=== PATIENT | female | born 1975 | race Caucasian/White ===

== ENCOUNTER 2024-10-05 20:40 | Emergency (ER) | payer OTHER, SELFPAY ==
[2024-10-05 20:41] VITALS: BP 109/81
--- NOTE | 2024-10-05 21:02 | ED.GENMED ---
History of Present Illness
General
Chief Complaint: Urinary Symptoms
Time Seen by Provider: 10/05/24 21:02
History of Present Illness
History of Present Illness:
TIME OF INITIAL ENCOUNTER: 9 PM
HPI: Patient presents with dysuria and abdominal discomfort. A few weeks ago, she went to see her [employer]ER who placed her on Flagyl for possible bacterial vaginosis. Shortly after she was on Flagyl, she developed unexplained bruising. She went to
[place] because she had ongoing symptoms she says that as an outpatient she had an MRI. She was placed on Macrobid recently and has taken 3 doses. She was concerned because of ongoing pain and she took a urinalysis [id number] today which
was abnormal. She tells me that in the past after she had a straight cath placed after she could not void after delivery, she had pyelonephritis/sepsis and this greatly concerned her now. She states she is 'scheduled to have a urine culture'. She
states she was recently tested for STDs and was negative.
EXAM:
GENERAL: Well appearing in no distress
HEENT: Moist oral mucosa
CARDIOVASCULAR: No murmurs, normal heart rate, regular rhythm, No chest wall tenderness
PULMONARY: No respiratory distress, breath sounds are clear and equal
ABDOMEN: Soft with no peritoneal signs, no tenderness
BACK: No CVA tenderness
NEUROLOGIC: Excellent strength all extremities, no coordination deficits
PSYCHIATRIC: Appropriate mental status, normal insight and judgement
EXTREMITIES: Nontender, no edema, moves all extremities equally
SKIN: No rash, no lesions
NUMBER AND COMPLEXITY OF PROBLEMS ADDRESSED AT THE ENCOUNTER
� Chronic conditions affecting care: Asthma, has had pyelonephritis
� Acute Exacerbation and/or Progression of Chronic Illness: This is an acute problem
� Differential Diagnosis includes: UTI, pyelonephritis, doubt sepsis based on vital signs
AMOUNT AND/OR COMPLEXITY OF DATA TO BE REVIEWED AND ANALYZED
� I performed an independent evaluation of and my interpretation is:
EKG:
CT:
X-rays:
Laboratory Studies: Urinalysis entirely negative, white count normal, chemistries unremarkable
Other:
� Review of other/old records: I reviewed records, the patient was seen here with esophagitis in the past.
� Clinical information was obtained by an independent historian: None needed
� Prescriptions/Medications Considered but not given:
� Further testing considered but not performed: Considered imaging tonight however the patient had a recent CT of the abdomen pelvis which showed an ovarian cyst and an MRI of the pelvis that showed fibroids
RISK OF COMPLICATIONS AND/OR MORBIDITY OR MORTALITY OF PATIENT MANAGEMENT
� Social determinants of health affecting care: Lives at home
� Discussion with other providers: None needed
� Escalation of care including admission/observation vs risk of discharge considered: The patient has a normal urinalysis however remains very concerned of ongoing dysuria type symptoms. I have called the micro lab to add on a
urine culture and they have said that they will do so. White blood cell count is normal. The patient appears very anxious as she was septic from pyelonephritis in the past. However currently there is no clear indication for admission to the
hospital but we did give a one-time dose of Rocephin here in case she does have a more serious urinary tract infection not seen on urinalysis. Although it is listed that she has a penicillin allergy, the patient tells me that her chief strategy officer told her
that she does not have a true penicillin allergy.
ANY OTHER UPDATES:
Past History
Past History
ED Past Medical History: Asthma
Social History
Personal: Single
Living: with family
Phy Exam
Physical Exam
Physical Exam:
See HPI
Course
Orders/Labs/Results
Orders:
Orders
10/05/24 21:40
Complete Blood Count/With Diff Urgent
Comprehensive Metabolic Panel Urgent
Urinalysis Reflex To Culture Urgent
Date Specimen was Collected: 10/05/24
Time Specimen was Collected: 21:20
Urine Culture Urgent
[facility] Source: U
Specimen Description:
Date Specimen was Collected: 10/05/24
Time Specimen was Collected: 21:20
Comment: ADD ON
10/05/24 22:43
CefTRIAXone [Rocephin] 1,000 mg IV NOW STA
10/05/24 22:45
Add On- LAB Urgent
Tests Added?: urine culture
10/05/24 22:46
Phenazopyridine HCl [Pyridium] 200 mg PO NOW STA
Abnormal Lab Results
10/05/24
21:40
RBC 3.73 L 10^6/uL
(4.20-5.40)
Hct 36.0 L %
(37.0-47.0)
MCH 33.0 H pg
(27.0-31.0)
Absolute Monos (auto) 0.8 H 10^3/uL
(0.1-0.6)
Neutrophils % 40.9 L %
(42.2-75.2)
Monocytes % 14.5 H %
(1.7-9.3)
Total Bilirubin 0.1 L mg/dl
(0.2-1.3)
AST 13 L U/L
(14-36)
10/05/24 21:40
10/05/24 21:40
Vital Signs
Initial and Last Documented VS:
Initial Vital Signs
Temp Pulse Resp BP Pulse Ox
97.2 F 85 16 109/81 98
10/05/24 20:41 10/05/24 20:41 10/05/24 20:41 10/05/24 20:41 10/05/24 20:41
Last Documented Vital Signs
Temp Pulse Resp BP Pulse Ox
97.2 F 85 16 109/81 98
10/05/24 20:41 10/05/24 20:41 10/05/24 20:41 10/05/24 20:41 10/05/24 20:41
*Critical Care Note
Total Time (30-74mins, 75-104mins- exclusive of procedures): Not Applicable
ED Attending Note
-
Portions of this chart may have been created with voice recognition software.� Occasional wrong word or��sound alike� substitutions may have occurred due to the inherent limitations of voice recognition software.
Discharge Plan
Departure
Patient Disposition: Home (Routine Discharge)
Date of Disposition: 10/05/24
Time of Disposition: 22:47
Patient with high blood pressure during this ER visit?: Yes
Discharge Problem:
Dysuria
Prescriptions:
New
phenazopyridine [Pyridium] 200 mg tablet
200 mg PO BID PRN (Reason: Pain) Qty: 6 0RF
Referrals:
Librado Sheridan MD [Active] - Follow up in 2-3 days
UNKNOWN - PT DOES,NOT KNOW [Family Provider] -
Activity Restrictions/Additional Instructions:
Your urinalysis was entirely negative�no sign of blood or signs of infection. However, I have asked the microbiology lab to add a urine culture regardless. You will only be notified if the urine culture is abnormal. Your white blood cell count is
normal. We did give you an IV dose of Rocephin while you are here. I sent a prescription for Pyridium to your pharmacy. I have also given the contact information for a local urologist to follow-up with, Dr. Sheridan. Continue your current
antibiotic.
Interventions
Interventions:
*Risk Screen - Suicide Last Done: 10/05/24 20:41
*General Assessment Last Done: 10/05/24 20:41
*Neglect/Abuse Screening Last Done: 10/05/24 20:41
ED- Fall Risk Assessment Last Done: 10/05/24 21:34
*ED COVID-19 Vaccine History Last Done: 10/05/24 21:34
ED-Female Genitourinary Assessment Last Done: 10/05/24 21:35
Discharge Date and Time
Print Language: ST [place]
[2024-10-05 21:34] VITALS: BMI 24.6
[2024-10-05 21:48] LABS: % Basophils 0.9 % (0-2); % Eosinophils 2.2 % (0-6); % Immature Granulocytes 0.4 % (0-0.5); % Lymphocytes 41.1 % (20.5-51.1); % Monocytes 14.5 % (1.7-9.3); % Neutrophils 40.9 % (42.2-75.2); Absolute Basophils 0.1 10^3/uL (0-0.2); Absolute Eosinophils 0.1 10^3/uL (0-0.7); Absolute Lymphocytes 2.3 10^3/uL (1.2-3.4); Absolute Monocytes 0.8 10^3/uL (0.1-0.6); Absolute Neutrophils 2.3 10^3/uL (1.4-6.5); Hemoglobin 12.3 g/dL (12.0-16.0); Mean Corp Hgb Conc. 34.2 g/dL (33.0-37.0); Mean Corpuscular Volume 96.5 fL (81.0-99.0); Mean Platelet Volume 9.9 fL (7.4-10.4); Nucleated Red Blood Cells % 0 %; Platelet Count 270 10^3/uL (130-400); Red Blood Cell Count 3.73 10^6/uL (4.20-5.40); White Blood Cell Count 5.6 10^3/uL (4.8-10.8)
[2024-10-05 21:49] LABS: Urine Albumin Negative (Neg - Trace); Urine Bilirubin Negative (Negative); Urine Character Clear (Clear); Urine Color Yellow; Urine Glucose Negative (Negative); Urine Ketone Negative (Negative); Urine Leukocyte Negative (Negative); Urine Nitrite Negative (Negative); Urine Occult Blood Negative (Negative); Urine Specific Gravity 1.015 (<1.030); Urine Urobilinogen Negative (Neg - 1+)
[2024-10-05 22:08] LABS: ALT (SGPT) 13 U/L (0-35); AST (SGOT) 13 U/L (14-36); Albumin 3.9 g/dl (3.5-5.0); Alkaline Phosphatase 57 U/L (38-126); Blood Urea Nitrogen 17 mg/dl (7-17); Calcium 9.4 mg/dl (8.4-10.2); Carbon Dioxide 29 mmol/L (22-30); Chloride 103 mmol/L (98-107); Estimated Creatinine Clearance 59 ml/min; Glucose 99 mg/dl (70-99); Potassium 4.5 mmol/L (3.5-5.1); Sodium 139 mmol/L (135-145); Total Bilirubin 0.1 mg/dl (0.2-1.3); Total Protein 6.4 g/dl (6.3-8.2); eGFR > 60.00
[2024-10-05] MEDS: Pyridium 200 MG PO (22:53)
[2024-10-05] MEDS: ROCEPHIN 1000 MG IV (22:53)
== END 2024-10-05 23:10 | disposition home or self-care (01) ==
LOC: EMR 20:40
PROVIDERS: EMERGENCY PHYSICIAN Emergency Medicine
DX: J45.909 Unspecified asthma, uncomplicated (principal); Z88.0 Allergy status to penicillin
CPT/HCPCS: 99283; 96374; 80053; 81003; 85025; 87086

== ENCOUNTER 2024-10-18 22:46 | Emergency (ER) | payer OTHER, SELFPAY ==
[2024-10-18 22:54] VITALS: BP 102/72
--- NOTE | 2024-10-18 23:34 | ED.GENMED ---
History of Present Illness
<KURT Kruse - Last Filed: 10/19/24 01:23>
General
Chief Complaint: Musculo-Skeletal Complaint
Source: patient
Time Seen by Provider: 10/18/24 23:10
Nursing documentation reviewed up to this point in time: agreed with
History of Present Illness
History of Present Illness:
Pt is a 48 yo F who presents to the emergency department with 3rd toe pain of the right foot. Pt states that this morning she woke up and stubbed her toe when she got out of bed. She states that the pain began immediately after she stubbed her toe
on the floor. She states that her toe also has bruising and swelling. She reports that the toe typically is 'curved' and has a bunion, and that it looks worse now compared to normal. Pt states that she took 800mg of Motrin 3 hours ago before coming
into the ED which provided pain relief. Pt states that before taking the Motrin, the pain from the 3rd toe radiated up along her anterior right foot. Pt states that throughout the day when walking she was placing her body weight onto her left foot,
and that now her left foot feels weak. Pt denies numbness or tingling of extremities, ankle pain or swelling, fever, chills.
Past History
<KURT Kruse - Last Filed: 10/19/24 01:23>
Past History
ED Past Medical History: Asthma
Social History
Personal: Single
Living: with family
Review of Systems
<KURT Kruse - Last Filed: 10/19/24 01:23>
Review of Systems
Allergies reviewed?: Yes
Constitutional: Reports no symptoms
Respiratory: Reports no symptoms
Cardiac: Reports no symptoms
ABD/GI: Reports no symptoms
Musculoskeletal: Reports other (3rd toe of right toe pain)
Skin: Reports no symptoms
Neurological: Reports no symptoms
Phy Exam
<KURT Kruse - Last Filed: 10/19/24 01:23>
General Physical Exam
General Presentation: well appearing and no apparent distress
General age: appears stated age
General Skin: warm
General Habitus: normal
General Mental: alert
General Hydration: appears well hydrated
Musculoskeletal Exam
Musculoskeletal Exam: other (3rd toe of right foot pain on palpation, edema, and ecchymosis )
Course
<KURT Kruse - Last Filed: 10/19/24 01:23>
Orders/Labs/Results
Orders:
Orders
10/18/24 22:52
Toes 2 Views, Right [CR Toe(s) Min 2 Vw Right] Urgent
Comment:
Reason For Exam: injury and pain.
Indicate Which Toe:: Third
10/18/24 23:54
Ortho Boot Right- Treatment ONCE
Short or tall?: Short
10/18/24 23:55
Oxycodone/Acetaminophen [Percocet 5/325] 1 tablet PO NOW STA
Vital Signs
Initial and Last Documented VS:
Initial Vital Signs
Temp Pulse Resp BP Pulse Ox
98.2 F 74 18 102/72 99
10/18/24 22:54 10/18/24 22:54 10/18/24 22:54 10/18/24 22:54 10/18/24 22:54
Last Documented Vital Signs
Temp Pulse Resp BP Pulse Ox
98.2 F 70 20 112/86 98
10/18/24 22:54 10/19/24 01:05 10/19/24 01:05 10/19/24 01:05 10/19/24 01:05
<Rodrigo Arriola DO - Last Filed: 10/19/24 00:23>
Orders/Labs/Results
Orders:
Orders
10/18/24 22:52
Toes 2 Views, Right [CR Toe(s) Min 2 Vw Right] Urgent
Comment:
Reason For Exam: injury and pain.
Indicate Which Toe:: Third
10/18/24 23:54
Ortho Boot Right- Treatment ONCE
Short or tall?: Short
10/18/24 23:55
Oxycodone/Acetaminophen [Percocet 5/325] 1 tablet PO NOW STA
Vital Signs
Initial and Last Documented VS:
Initial Vital Signs
Temp Pulse Resp BP Pulse Ox
98.2 F 74 18 102/72 99
10/18/24 22:54 10/18/24 22:54 10/18/24 22:54 10/18/24 22:54 10/18/24 22:54
Last Documented Vital Signs
Temp Pulse Resp BP Pulse Ox
98.2 F 70 20 112/86 98
10/18/24 22:54 10/19/24 01:05 10/19/24 01:05 10/19/24 01:05 10/19/24 01:05
<KURT Kruse - Last Filed: 10/19/24 01:23>
MDM/Problems Addressed
Differential Diagnosis Includes:
Toe fracture, toe injury
<KURT Kruse - Last Filed: 10/19/24 01:23>
*Critical Care Note
Total Time (30-74mins, 75-104mins- exclusive of procedures): Not Applicable
<Rodrigo Arriola DO - Last Filed: 10/19/24 00:23>
Update Note
Update Note:
10/19/2024 0015 AM back in to see the patient. I brought copies of her x-rays. She was insistent that her toe is broken. I explained to her that I did not see any fractures and that radiology would review in the morning. But nonetheless we are
treating her for fracture with ronal tape at her request and a walking boot. I explained to her that she could take Tylenol and Motrin for the pain. She feels that her toe is colder than the rest. I reassessed the toe and feel that it is the same
temperature as the other toes. The skin blanches and has normal capillary refill despite having toenail tamazight on. She did exhibit full range of motion in the toe was pain. Patient does have orthopedics to follow-up with.
ED Attending Note
<ST UriahPA - Last Filed: 10/19/24 01:23>
-
Portions of this chart may have been created with voice recognition software.� Occasional wrong word or��sound alike� substitutions may have occurred due to the inherent limitations of voice recognition software.
<Rodrigo Arriola DO - Last Filed: 10/19/24 00:23>
ED Attending Note
Patient seen and examined by attending physician: Yes
I performed the substantive portion of visit, reviewed & personally made and approve the management plan that is documented in note by myself or ABDULLAHI.: Yes
ED Attending Note:
This a pleasant 48-year-old female who presents to the Emergency Department with right third toe pain. Patient stubbed her toe when she got out of bed. She states that the pain began immediately. She did notice some bruising and swelling. Denies
any other injury. 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 She states that she does have a bunion but her toenail looks worse than normal. Patient has been able to ambulate. Patient was seen in conjunction with the PA student. I have reviewed and
agree with the history and treatment plan presented. On my independent physical exam, patient is awake, alert, and oriented x3 minimal acute distress. Third toe on the right foot is ecchymotic. There is some swelling. There is some chronic
deformity to the toe. There is good temperature. Toe is euthermic. She does have good capillary refill but toenail is painted. All other signs indicate good cap refill. She does have full range of motion in the toe.
I did give her a copy of her x-ray that I printed out.
Discharge Plan
Departure
Patient Disposition: Home (Routine Discharge)
Date of Disposition: 10/18/24
Time of Disposition: 23:58
Patient with high blood pressure during this ER visit?: Yes
Condition: Good
Discharge Problem:
Sprain of toe
Instructions: Muscle and Bone Pain (DC), Using Cold for Pain, BLOOD PRESSURE
Prescriptions:
No Action
phenazopyridine [Pyridium] 200 mg tablet
200 mg PO BID PRN (Reason: Pain) Qty: 6 0RF
Referrals:
Steve Villalobos MD [Family Provider] -
Jose Villaseñor MD [Active] - As needed
Activity Restrictions/Additional Instructions:
Tylenol and Motrin for the pain
It was a pleasure meeting you and taking part in your care. We hope for your continued healing and wellness.
Please read discharge instructions in their entirety. However, they are for general education and may not describe your exact diagnosis at discharge. Information on your ER visit and medical conditions were discussed with you along with appropriate
follow up information...
If indicated, please take your medications as instructed and indicated on discharge paperwork.
Please schedule a follow up appointment as directed. Call to schedule an appointment
Please return to the emergency department with ANY change in, persisting, or worsening of symptoms. If any of your symptoms do not improve, or persist, or become more severe within 6-12 hours, please return to the emergency department for further
care.
Please return to the emergency department if you develop a headache, neck pain/stiffness, fever greater than 100.4F, chest pain, shortness of breath, persistent nausea, vomiting, slurred speech, difficulty walking, numbness/tingling, weakness, signs
of infection or any other symptoms that are worrisome to you.
If you have any questions or concerns please do not hesitate to call the Hospital at
Interventions
Interventions:
*Risk Screen - Suicide Last Done: 10/18/24 23:45
*General Assessment Last Done: 10/18/24 23:45
*Neglect/Abuse Screening Last Done: 10/18/24 23:45
*ED COVID-19 Vaccine History Last Done: 10/18/24 23:45
*Nursing Disposition Last Done: 10/19/24 01:08
ED-Musculoskeletal Assessment Last Done: 10/18/24 23:44
Discharge Date and Time
Discharge Date/Time: 10/19/24 01:08
Print Language: SAMMARINESE
[2024-10-19] MEDS: PERCOCET 5/325 1 TABLET PO (01:01)
[2024-10-19 01:05] VITALS: BP 112/86
== END 2024-10-19 01:08 | disposition home or self-care (01) ==
LOC: EMR 22:46
PROVIDERS: EMERGENCY PHYSICIAN Student in an Organized Health Care Education/Training Program; FAMILY PHYSICIAN Internal Medicine
DX: S93.509A Unspecified sprain of unspecified toe(s), initial encounter (principal); W22.03XA Walked into furniture, initial encounter; J45.909 Unspecified asthma, uncomplicated
CPT/HCPCS: 99283; 73660

== ENCOUNTER 2025-01-27 20:30 | Emergency (ER) | payer OTHER, SELFPAY ==
[2025-01-27 20:33] VITALS: BP 113/67
[2025-01-27 22:19] VITALS: BP 108/65; BMI 24.2
--- NOTE | 2025-01-27 22:56 | ED.GENMED ---
History of Present Illness
General
Chief Complaint: Dizziness
Source: patient
Time Seen by Provider: 01/27/25 22:01
History of Present Illness
History of Present Illness:
49-year-old female presents to the emergency room complaining of feeling dizzy. Patient began having symptoms about 24 hours ago. She remains perfectly still she feels like her symptoms subside but with any movement of her head she has a sense of
movement and nausea. She denies any headache. She denies any focal weakness numbness or tingling. Patient had a similar episode about 3 years ago which took some time for her to recover from. She does not recall what the diagnosis was at that
time.
Past History
Past History
ED Past Medical History: Asthma
Social History
Personal: Single
Living: with family
Phy Exam
Physical Exam
Physical Exam:
General: Awake, Alert, Oriented X3. No acute distress.
Vitals: unremarkable
Head: Atraumatic
Eyes: Pupils equal, EOMI
Throat: Airway intact, no exudates
Neck: Trachea midline
Lungs: Clear and equal b/l
Heart: Regular rate, no murmurs
Abd: Soft, Nontender, No pulsatile mass
Neuro: Cranial nerves intact, muscle strength equal bilaterally, cerebellar exam normal
Skin: Warm, dry, no rash
Extremities: pulses equal b/l, no edema
Course
Orders/Labs/Results
Orders:
Orders
01/27/25 20:36
EKG [Electrocardiogram (*1)] Urgent
Reason for Study: Vertigo / Dizzy
EKG- Treatment ONCE
01/27/25 22:55
0.9% Sodium Chloride 1000 ml [Nss] 1,000 ml IV BOLUS
Ondansetron Injectable [Zofran] 4 mg IV NOW STA
01/27/25 22:56
Meclizine [Antivert] 25 mg PO NOW STA
01/27/25 23:02
Basic Metabolic Panel Urgent
Complete Blood Count/With Diff Urgent
Abnormal Lab Results
01/27/25
23:02
RBC 4.03 L 10^6/uL
(4.20-5.40)
MCH 32.8 H pg
(27.0-31.0)
Absolute Monos (auto) 0.9 H 10^3/uL
(0.1-0.6)
Monocytes % 13.7 H %
(1.7-9.3)
Glucose 109 H mg/dl
(70-99)
01/27/25 23:02
01/27/25 23:02
Vital Signs
Initial and Last Documented VS:
Initial Vital Signs
Temp Pulse Resp BP Pulse Ox
98.5 F 87 18 113/67 97
01/27/25 20:33 01/27/25 20:33 01/27/25 20:33 01/27/25 20:33 01/27/25 20:33
Last Documented Vital Signs
Temp Pulse Resp BP Pulse Ox
98.5 F 80 16 108/65 98
01/27/25 20:33 01/27/25 22:19 01/27/25 22:19 01/27/25 22:19 01/27/25 22:19
MDM/Problems Addressed
Differential Diagnosis Includes:
Benign positional vertigo, lab otitis, posterior circulation stroke, dehydration
MDM/Problems Addressed:
Patient presents with vertiginous type symptoms. The remainder of her neurologic exam is normal. She felt much better after meclizine. Workup here shows no evidence of an emergent process. Suspect labyrinthitis or other benign positional
vertigo. Recommend follow-up with ENT and physical therapy for vestibular therapy. Meclizine as needed
*Pulse Oximetry
Patient hypoxic: no
*EKG
Interpreted by ED Provider?: Yes
Heart Rate: 75
Rate: normal
Rhythm: sinus
[place]: normal axis
Interval: normal interval
QRS Pattern: normal QRS
Ischemia: no ischemia
*Art Coordinator Interpretation
Rate: normal
Interpretation: normal
Rhythm: sinus
*Critical Care Note
Total Time (30-74mins, 75-104mins- exclusive of procedures): Not Applicable
ED Attending Note
-
Portions of this chart may have been created with voice recognition software.� Occasional wrong word or��sound alike� substitutions may have occurred due to the inherent limitations of voice recognition software.
Discharge Plan
Departure
Patient Disposition: Home (Routine Discharge)
Date of Disposition: 01/28/25
Time of Disposition: 00:41
Patient with high blood pressure during this ER visit?: No
Condition: Good
Discharge Problem:
Vertigo
Instructions: Vertigo (a Type of Dizziness) (DC)
Prescriptions:
New
ondansetron 4 mg tablet,disintegrating
4 mg PO TID PRN (Reason: nausea and vomiting) Qty: 12 0RF
No Action
phenazopyridine [Pyridium] 200 mg tablet
200 mg PO BID PRN (Reason: Pain) Qty: 6 0RF
Referrals:
Steve Villalobos MD [Family Provider] -
Reji Munoz MD [Active] -
Stand Alone Forms: Return to Work
Activity Restrictions/Additional Instructions:
I believe you are having vertigo due to irritation to your inner ear balance mechanism. The medicine we gave you is called meclizine which you can purchase over the counter. You should take 25mg every 8 hours as needed for your symptoms. I have
also sent a prescription for nausea medication, Zofran. You should follow up with an ENT specialist who's information is included on these discharge instructions.
Interventions
Interventions:
*Risk Screen - Suicide Last Done: 01/27/25 20:33
*General Assessment Last Done: 01/27/25 20:33
*Neglect/Abuse Screening Last Done: 01/27/25 20:33
*ED- Fall Risk Assessment Last Done: 01/27/25 20:33
*ED COVID-19 Vaccine History Last Done: 01/27/25 20:33
*Nursing Disposition Last Done: 01/28/25 01:07
ED- Neurological Assessment Last Done: 01/27/25 22:19
ED- Cardiac Assessment Last Done: 01/27/25 22:19
Discharge Date and Time
Discharge Date/Time: 01/28/25 01:10
Print Language: CAMEROONIAN
[2025-01-27] MEDS: ANTIVERT 25 MG PO (23:08)
[2025-01-27] MEDS: NSS 1000 IV (23:09)
[2025-01-27] MEDS: ZOFRAN 4 MG IV (23:09)
[2025-01-27 23:18] LABS: % Basophils 0.6 % (0-2); % Eosinophils 1.5 % (0-6); % Immature Granulocytes 0.2 % (0-0.5); % Lymphocytes 32.4 % (20.5-51.1); % Monocytes 13.7 % (1.7-9.3); % Neutrophils 51.6 % (42.2-75.2); Absolute Eosinophils 0.1 10^3/uL (0-0.7); Absolute Lymphocytes 2.2 10^3/uL (1.2-3.4); Absolute Monocytes 0.9 10^3/uL (0.1-0.6); Absolute Neutrophils 3.4 10^3/uL (1.4-6.5); Hematocrit 37.4 % (37.0-47.0); Hemoglobin 13.2 g/dL (12.0-16.0); Mean Corp Hgb Conc. 35.3 g/dL (33.0-37.0); Mean Corpuscular Hgb 32.8 pg (27.0-31.0); Mean Corpuscular Volume 92.8 fL (81.0-99.0); Mean Platelet Volume 9.7 fL (7.4-10.4); Nucleated Red Blood Cells % 0 %; Platelet Count 270 10^3/uL (130-400); Red Blood Cell Count 4.03 10^6/uL (4.20-5.40); Red Cell Dist. Width 12.7 % (11.5-14.5); White Blood Cell Count 6.7 10^3/uL (4.8-10.8)
[2025-01-27 23:30] LABS: Blood Urea Nitrogen 17 mg/dl (7-17); Calcium 9.7 mg/dl (8.4-10.2); Carbon Dioxide 27 mmol/L (22-30); Chloride 103 mmol/L (98-107); Estimated Creatinine Clearance 88 ml/min; Glucose 109 mg/dl (70-99); Potassium 4.3 mmol/L (3.5-5.1); Sodium 137 mmol/L (135-145); eGFR > 60.00
--- NOTE | 2025-01-27 23:45 | EDRN ---
Patient ambulated into the restroom and back in bed, another warm blanket applied, patient reports feeling a little better
== END 2025-01-28 01:10 | disposition home or self-care (01) ==
LOC: EMR 20:30
PROVIDERS: EMERGENCY PHYSICIAN Emergency Medicine; FAMILY PHYSICIAN Internal Medicine
DX: R42 Dizziness and giddiness (principal); J45.909 Unspecified asthma, uncomplicated
CPT/HCPCS: 99283; 80048; 85025; 93005

== ENCOUNTER 2025-02-21 21:08 | Emergency (ER) | payer OTHER, SELFPAY ==
[2025-02-21 21:10] VITALS: BP 123/66
--- NOTE | 2025-02-21 22:30 | ED.GENMED ---
History of Present Illness
General
Chief Complaint: Ear Problem
Source: patient
Exam Limitations: none
Time Seen by Provider: 02/21/25 22:02
Nursing documentation reviewed up to this point in time: agreed with
History of Present Illness
History of Present Illness:
Is a pleasant 49-year-old female who presents to the emergency department with left-sided facial pain. Patient was seen by ear nose and throat and then had a second opinion after being in the emergency department and diagnosed with benign
positional vertigo. Patient was on clindamycin due to a penicillin allergy and when that was done she was started on Omnicef. She did have an MRI 1 week ago and states that her left-sided sinus pain increased right after having the MRI. Patient
denies fever or chills. She states that she had a Juv�derm collagen injection on the right side approximately 1 year ago. She states that it was in her right cheek. She is concerned that the Juv�derm caused an issue. Over the last several
months, patient has been on steroids and a Dosepak.
Vital signs are stable. Patient not hypoxic
Nursing note reviewed. I agree with nursing documentation up to this point in time.
Home Meds and allergies reviewed.
NUMBER AND COMPLEXITY OF PROBLEMS ADDRESSED AT THE ENCOUNTER
� Chronic conditions affecting care: Subacute sinusitis
� Acute Exacerbation and/or Progression of Chronic Illness: Sinusitis that is worsening
� Differential Diagnosis includes: Sinusitis, nerve damage
AMOUNT AND/OR COMPLEXITY OF DATA TO BE REVIEWED AND ANALYZED
I performed an independent evaluation of the following and my interpretation is:
EKG:
Pulse Ox: Not Hypoxic
CT: Results reviewed by myself
Other:
Review of other/old records: Patient had an MRI at an outside facility.
Clinical information was obtained by an independent historian:
Prescriptions/Medications Considered but not given:
Further testing considered but not performed: Discussed lab work with patient. Patient has been on antibiotics recently. Blood work within the last week.
RISK OF COMPLICATIONS AND/OR MORBIDITY OR MORTALITY OF PATIENT MANAGEMENT
Social determinants of health affecting care: Good Social Support, compliant with medications
Discussion with other providers:
Escalation of care including admission/observation vs risk of discharge considered: After being observed in the emergency department, patient is stable for discharge
CRITICAL CARE NOTE: Not applicable
Total Time (exclusive of procedures):
Update:
Past History
Past History
ED Past Medical History: Asthma
Social History
Personal: Single
Living: with family
Review of Systems
Review of Systems
Allergies reviewed?: Yes
All Other Systems: ROS reviewed and negative except as documented in HPI and ROS
Constitutional: Reports no symptoms
EENT: Reports other (Facial pressure)
Respiratory: Reports no symptoms
Cardiac: Reports no symptoms
: Reports no symptoms
Musculoskeletal: Reports no symptoms
Skin: Reports no symptoms
Neurological: Reports no symptoms
Endocrine: Reports no symptoms
Hematologic/Lymphatic: Reports no symptoms
Psychiatric: Reports no symptoms
Phy Exam
General Physical Exam
General Presentation: well appearing
General age: appears stated age
General Skin: warm and dry
General Habitus: normal
General Mental: alert
General Hydration: appears well hydrated
ENT Exam
ENT Exam: EOMI, TM's normal (No cerumen bilaterally. Tympanic membranes are intact bilaterally. Bulging.), pharynx normal, neck supple, normocephalic and swallowing well
Eye Exam
Eye Exam: PERRL, cornea clear and conjunctiva normal
Cardiovascular Exam
Cardiovascular Exam: regular rate/rhythm, no edema, no murmur and normal peripheral pulses
Pulmonary Exam
Pulmonary Exam: lungs clear, no respiratory distress, no rales, no crackles, no rhonchi, no stridor, no wheezing and no cough
Gastrointestinal Exam
Gastrointestinal Exam: normal bowel sounds, non tender, soft, no organomegaly, no pulsatile mass and non distended
Neurological Exam
Neurological Exam: alert, oriented x3, no motor deficits and speech normal
Musculoskeletal Exam
Musculoskeletal Exam: full ROM
Skin Exam
Skin Exam: normal color and warm/dry
Psychiatric Exam
Psychiatric Exam: normal mood/affect
Course
Orders/Labs/Results
Orders:
Orders
02/21/25 22:29
Dexamethasone Pf [Decadron] 10 mg PO NOW STA
Guaifenesin [Mucinex] 600 mg PO NOW STA
02/21/25 22:30
CT Sinuses W/o Iv Contrast Urgent
Comment:
Reason For Exam: left sided pain, failed 2x abx
02/22/25 00:04
Famotidine [Pepcid] 20 mg .ROUTE .STK-MED ONE
02/22/25 00:06
Famotidine [Pepcid] 20 mg PO NOW STA
Vital Signs
Initial and Last Documented VS:
Initial Vital Signs
Temp Pulse Resp BP Pulse Ox
98.2 F 83 18 123/66 97
02/21/25 21:10 02/21/25 21:10 02/21/25 21:10 02/21/25 21:10 02/21/25 21:10
Last Documented Vital Signs
Temp Pulse Resp BP Pulse Ox
98.2 F 83 20 123/66 97
02/21/25 21:10 02/21/25 21:10 02/21/25 22:55 02/21/25 21:10 02/21/25 21:10
*Critical Care Note
Total Time (30-74mins, 75-104mins- exclusive of procedures): Not Applicable
Update Note
Update Note:
Additional Information (per [facility] Radiologist):
CT SINUSES (without contrast)
IMPRESSION:
Mucoperiosteal thickening of right maxillary sinus which is nearly completely opacified consistent chronic sinusitis.
Remaining paranasal sinuses are clear.
Chronic degenerative changes of temporomandibular joints, right greater than left.
The osseous orbits are intact. The intraorbital contents are normal.
Reviewed CT scan findings with the patient.
Patient has no temporal pain. Pain is all in the maxillary sinus.
Patient denies any headaches or visual changes. No scalp tenderness. No jaw pain while chewing.
Patient has been on steroids and antibiotics.
There is no evidence of rash or other zoster like symptoms.
Patient denies fever or fatigue
I was able to compare today's CT scan findings with her MRI that she had several weeks ago. She had the results on her phone. They are largely similar.
Patient will be discharged with a prescription for Mucinex.
She will continue to take the cefdinir.
She will follow-up with ENT.
ED Attending Note
-
Portions of this chart may have been created with voice recognition software.� Occasional wrong word or��sound alike� substitutions may have occurred due to the inherent limitations of voice recognition software.
Discharge Plan
Departure
Patient Disposition: Home (Routine Discharge)
Date of Disposition: 02/22/25
Time of Disposition: 00:18
Patient with high blood pressure during this ER visit?: Yes
Condition: Good
Discharge Problem:
Chronic maxillary sinusitis
Instructions: Sinusitis in adults - ED discharge instructions, BLOOD PRESSURE
Prescriptions:
New
guaifenesin [Mucinex] 600 mg tablet extended release 12hr
600 mg PO BID PRN (Reason: congestion) Qty: 14 0RF
No Action
phenazopyridine [Pyridium] 200 mg tablet
200 mg PO BID PRN (Reason: Pain) Qty: 6 0RF
ondansetron 4 mg tablet,disintegrating
4 mg PO TID PRN (Reason: nausea and vomiting) Qty: 12 0RF
Referrals:
Steve Villalobos MD [Family Provider] -
Rosendo Koch MD [Active] - Call in 1-3 days for appt
Activity Restrictions/Additional Instructions:
Please continue to take your cefdinir as previously prescribed.
You received a one-time dose of steroid. Prescription needed
Your prescriptions were sent electronically to the pharmacy that you specified.
It was a pleasure meeting you and taking part in your care. We hope for your continued healing and wellness.
Please read discharge instructions in their entirety. However, they are for general education and may not describe your exact diagnosis at discharge. Information on your ER visit and medical conditions were discussed with you along with appropriate
follow up information...
If indicated, please take your medications as instructed and indicated on discharge paperwork.
Please schedule a follow up appointment as directed. Call to schedule an appointment
Please return to the emergency department with ANY change in, persisting, or worsening of symptoms. If any of your symptoms do not improve, or persist, or become more severe within 6-12 hours, please return to the emergency department for further
care.
Please return to the emergency department if you develop a headache, neck pain/stiffness, fever greater than 100.4F, chest pain, shortness of breath, persistent nausea, vomiting, slurred speech, difficulty walking, numbness/tingling, weakness, signs
of infection or any other symptoms that are worrisome to you.
If you have any questions or concerns please do not hesitate to call the Hospital at
Interventions
Interventions:
*Risk Screen - Suicide Last Done: 02/21/25 21:10
*General Assessment Last Done: 02/21/25 21:10
*Neglect/Abuse Screening Last Done: 02/21/25 21:10
*ED- Fall Risk Assessment Last Done: 02/22/25 00:26
*ED COVID-19 Vaccine History Last Done: 02/21/25 21:10
*Nursing Disposition Last Done: 02/22/25 00:26
Discharge Date and Time
Print Language: LAO
[2025-02-21] MEDS: MUCINEX 600 MG PO (22:40)
[2025-02-21] MEDS: DECADRON 10 MG PO (22:40)
[2025-02-22] MEDS: PEPCID 20 MG PO (00:06)
== END 2025-02-22 00:59 | disposition home or self-care (01) ==
LOC: EMR 21:08
PROVIDERS: EMERGENCY PHYSICIAN Student in an Organized Health Care Education/Training Program; FAMILY PHYSICIAN Internal Medicine
DX: J32.0 Chronic maxillary sinusitis (principal); R03.0 Elevated blood-pressure reading, without diagnosis of hypertension
CPT/HCPCS: 99284; 70486